=== PATIENT | male | born 1960 | race Caucasian/White ===

== ENCOUNTER 2022-04-24 12:42 | Day surgery (SDC) | payer OTHER, SELFPAY ==
[2022-04-11 11:10] VITALS: BMI 32.5
--- NOTE | 2022-04-23 13:09 | SUR.PREOP ---
PT CALLED REGARDING MAG CITRATE PORTION OF PREP FOR TOMORROWS COLONOSCOPY. INSTRUCTED PT REGARDING RECALL. NO REPLACEMENT NEEDED PER DR SHELDON OFFICE
--- NOTE | 2022-04-24 13:26 | P.PNAN_ITS ---
Anes - Initial Pre Proc Eval Procedure: Operation Date: 04/24/22 14:30 Proposed Procedures p Screening Colonoscopy - Berto Pabon MD Date/Time: 04/24/22 13:26 Surgeon: Berto Pabon MD Pre Op Diagnosis: Neoplasm Screening and History of Colon Polyps Patient Data Age: 62 Gender: M Height: 1.83 m Weight: 109 kg Allergies Allergy/AdvReac Type Severity Reaction Status Date / Time NKDA Allergy Unknown Other Uncoded 04/11/22 10:57 Home Medications Medication Instructions Recorded Confirmed Type sodium sul 1.479 gram-potas ch See Rx Instructions PO PER PKG DIR 01/08/22 Rx 0.188 gram-magnes sul 0.225 gram #24 tabs tablet (Sutab) [id number] 120 mcg-lutein 1 tablet PO DAILY 04/11/22 04/11/22 History 150 mcg-herb 50 mg chewable tablet (Alive Men's 50 Plus Multivitamin) Patient hx anesthesia problems: none Family hx anesthesia problems: none Results Review: All pre-operative results and documents have been reviewed as part of the pre-operative evaluation. [facility] Past Medical History Medical History Hyperlipidemia KLAUS (obstructive sleep apnea) Family History Family History Mother Patient's mother is in good health Sibling Patient's sister is in good health Social History Social History Smoking packs per day: 1 Smoking cigarettes per day: 20.0 Years smoked: 40 Smoking pack-years: 40.00 Smoking status: Current every day smoker Tobacco type: cigarettes Alcohol intake: current Drinks per week: 15 Alcohol use details: 2-3 BEERS PER DAY Substance use: never Substance use type: does not use Living arrangements: with family Spiritual care concerns: No Anes - Eval Final PreProcedure Day of Procedure 04/24/22 13:26 Patient weight: obese Heart: regular rate and rhythm Lungs: decreased breath sounds Airway: Mallampati scale class II Neurological: alert and oriented Last oral intake: >/= 8 hours ASA classification: III Emergent: no Anesthetic plan: proceed Anesthesia type and monitoring: general GIVS and standard monitoring Results Review: All pre-operative results and documents have been reviewed as part of the pre- operative evaluation. Informed Consent: The patient's anesthetic plan and its attendant risks and benefits were discussed with the patient/family/POA. Questions were solicited and answers provided to the satisfaction of the patient/family/POA.
[2022-04-24 13:41] VITALS: BP 153/88; PULSE 88; RESP 20; TEMP 37.2; O2SAT 95
[2022-04-24] MEDS: LACTATED RINGERS 1,000 ML 150 ML IV CONT (13:43)
--- NOTE | 2022-04-24 14:05 | PM.HPGS ---
History of Present Illness History of Present Illness Consent: Risks, benefits, and alternatives have been discussed and questions answered. Patient agrees to proceed with procedure. Chief complaint: Neoplasm Screening and History of Colon Polyps Narrative: Edgardo Niño is a 62 year old male Presents for screening colonoscopy. Patient has a distant history of colon polyps. Perhaps 10 years ago. Patient reports that his current weight appetite and bowel movements are normal. He denies abdominal pain. He has had no bleeding. Family history is significant for a daughter with Crohn's disease. Patient presents today for neoplasia screening. Past medical history is significant for detached retina with a buckle placed Review of Systems Review of Systems: review of systems noncontributory. [facility] Past Medical History Medical History Hyperlipidemia KLAUS (obstructive sleep apnea) Family History Family History Mother Patient's mother is in good health Sibling Patient's sister is in good health Social History Social History Smoking packs per day: 1 Smoking cigarettes per day: 20.0 Years smoked: 40 Smoking pack-years: 40.00 Smoking status: Current every day smoker Tobacco type: cigarettes Alcohol intake: current Drinks per week: 15 Alcohol use details: 2-3 BEERS PER DAY Substance use: never Substance use type: does not use Living arrangements: with family Spiritual care concerns: No Meds Home Medications and Allergies Home Medications Medication Instructions Recorded Confirmed Type sodium sul 1.479 gram-potas ch See Rx Instructions PO PER PKG DIR 01/08/22 04/24/22 Rx 0.188 gram-magnes sul 0.225 gram #24 tabs tablet (Sutab) [id number] 120 mcg-lutein 1 tablet PO DAILY 04/11/22 04/24/22 History 150 mcg-herb 50 mg chewable tablet (Alive Men's 50 Plus Multivitamin) Allergies Allergy/AdvReac Type Severity Reaction Status Date / Time NKDA Allergy Unknown Other Uncoded 04/24/22 13:38 Vital Signs Vital Signs - 24 hr 04/24/22 13:41 Temperature 99.0 F Pulse Rate 88 Respiratory Rate 20 Blood Pressure 153/88 H Pulse Oximetry 95 Oxygen Delivery Room Air Exam Narrative: Physical exam reveals patient to be alert. Vital signs stable. HEENT exam is unremarkable. Patient is anicteric. Lungs are clear to auscultation and percussion. Heart is without murmur or extra sounds. Abdomen bowel sounds are present soft nontender with no hepatosplenomegaly. Digital external rectal exam is normal. Assessment and Plan Assessment and plan (1) History of colon polyps: Code(s): Z86.010 - Personal history of colonic polyps Status: Acute Assessment and Plan: Patient has a history of colon polyps. Plan is for neoplasia screening , fololow up colonoscopy now. further recommendations will be given after endoscopy (2) Encounter for screening colonoscopy: Code(s): Z12.11 - Encounter for screening for malignant neoplasm of colon Status: Acute
[2022-04-24 14:31] VITALS: BP 121/72; PULSE 81; RESP 16
--- NOTE | 2022-04-24 14:36 | WPDANESPN ---
Anes - Prog Note Post-Op Date/Time: 04/24/22 14:36 Cardiovascular status: normal Respiratory status: normal Airway patency: baseline Mental status: baseline Post-Op hydration status: normal Vital Signs: Last Vital Signs Temp 37.2 C 04/24/22 13:41 Pulse 88 04/24/22 13:41 Resp 20 04/24/22 13:41 BP 153/88 H 04/24/22 13:41 Pulse Ox 95 04/24/22 13:41 O2 Del Method Room Air 04/24/22 13:41 Pain Score (VAS): 0 I/O: Intake & Output 04/23/22 04/24/22 04/24/22 23:59 07:59 15:59 Intake Total 500 Balance 500 Patient Feedback: Patient satisfied with anesthetic care.
[2022-04-24 14:41] VITALS: BP 130/90; PULSE 80; RESP 16; O2SAT 98
[2022-04-24 14:51] VITALS: BP 133/91; PULSE 78; RESP 16
--- NOTE | 2022-04-24 14:59 | SUR.PHASEII ---
1450; PT AWAKE AND ALERT. EATING AND DRINKING. DENIES PAIN.
== END 2022-04-24 15:02 | disposition home or self-care (01) ==
PROVIDERS: PCP Family Medicine; Visit Provider Internal Medicine Gastroenterology
PROC: 0DJD8ZZ Inspection of Lower Intestinal Tract, Via Natural or Artificial Opening Endoscopic (ICD-10-PCS; CPT 45378; principal; 2022-04-24 14:30)
DX: Z86.010 Personal history of colon polyps (principal)
CPT/HCPCS: 45385

== ENCOUNTER 2022-04-24 13:00 | Outpatient (NON) | payer OTHER, SELFPAY | END 2022-04-24 13:01 | disposition home or self-care (01) | LOC: ANHLAB 04-25 08:29 | PROVIDERS: PCP Family Medicine; Visit Provider Internal Medicine Gastroenterology | DX: Z86.010 Personal history of colon polyps (principal) | CPT/HCPCS: 88305 ==

== ENCOUNTER 2024-03-01 08:13 | Outpatient (CLI) | payer BC, SELFPAY ==
--- NOTE | ~2024-03-01 | CT_ITS ---
CT Scan of the Chest without Contrast: Clinical Indication: Lung cancer screening, nicotine dependence Technique: Contiguous sections were acquired throughout the chest without intravenous contrast. Dose reduction technique was used on this scan by utilizing automated exposure control and iterative recon struction technique. The dose-length product (DLP) was 252.67 mGy-cm. Findings: There is no evidence of any significant mediastinal, hilar or axillary lymphadenopathy. Coronary don ry calcifications are present. There is no evidence of pleural or pericardial effusion. The lungs are clear. No pulmonary nodules or infiltrates are noted. Images through the upper abdomen reveal no abnormalities. Impression: Lung RADS 1: Negative. 12 month follow-up screening CT advised. Reviewed, dictated and finalized at location . Impression: Lung RADS 1: Negative. 12 month follow-up screening CT advised.
== END 2024-03-01 08:14 ==
LOC: GOSHIMG 08:15
PROVIDERS: PCP Emergency Medicine; Visit Provider Emergency Medicine
DX: Z12.2 Encounter for screening for malignant neoplasm of respiratory organs (principal); Z87.891 Personal history of nicotine dependence
CPT/HCPCS: 71271

== ENCOUNTER 2024-03-01 08:25 | Outpatient (CLI) | payer BC, SELFPAY ==
[2024-03-05 16:38] LABS: Testosterone Total 370 ng/dL (250-1100)
== END 2024-03-01 08:26 | disposition home or self-care (01) ==
LOC: ANHGOSHLAB 08:26
PROVIDERS: PCP Emergency Medicine; Visit Provider Emergency Medicine
DX: N52.9 Male erectile dysfunction, unspecified (principal)
CPT/HCPCS: 36415; 84403

== ENCOUNTER 2024-03-07 08:13 | Outpatient (CLI) | payer BC, SELFPAY | END 2024-03-07 08:14 | disposition home or self-care (01) | PROVIDERS: PCP Emergency Medicine; Visit Provider Emergency Medicine | DX: H90.5 Unspecified sensorineural hearing loss (principal) | CPT/HCPCS: 92557; 92567 ==

== ENCOUNTER 2024-11-28 08:25 | Outpatient (CLI) | payer BC, SELFPAY | END 2024-11-28 08:26 | disposition home or self-care (01) | LOC: GOSHIMG 08:25 | PROVIDERS: PCP Nurse Practitioner; Visit Provider Nurse Practitioner | DX: M25.561 Pain in right knee (principal) | CPT/HCPCS: 73562 ==

== ENCOUNTER 2025-03-26 16:35 | Emergency (ER) | payer BC, SELFPAY ==
--- OUTSIDE RECORDS SUMMARY | 2014-06-30 06:52 | XMS_ITS | Continuity of Care Document ---
Author Organization [facility] Address [address] [place] [address] Phone Care Team Providers Care Head Of Strategy Name Role Phone Maxine PT, MS, Bob Unavailable Unavailable Procedures Procedure Date THERAPEUTIC EXERCISES NEUROMUSCULAR RE-ED MANUAL THERAPY HOT/COLD PACK ELECTRIC STIMULATION UNA THERAPEUTIC EXERCISES NEUROMUSCULAR RE-ED MANUAL THERAPY HOT/COLD PACK ELECTRIC STIMULATION UNATT THERAPEUTIC EXERCISES NEUROMUSCULAR RE-ED MANUAL THERAPY HOT/COLD PACK ELECTRIC STIMULATION UNATT THERAPEUTIC EXERCISES NEUROMUSCULAR RE-ED MANUAL THERAPY HOT/COLD PACK ELECTRIC STIMULATION UNA PT EVALUATION THERAPEUTIC EXERCISES HOT/COLD PACK ELECTRIC STIMULATION UNATT Advance Directives Directive Yes / No Effective Date File Name No Information Encounters Encounter Description Practice Location Reason(s) For Visit Diagnoses Date Provider Providers Copied on Encounter [facility], [address], [place], [place], [id number], [place] tel:[phone] Boon No Information 4 Maxine Rojas. [address] [place] [address], [address], [place], [place], [facility], [place]. tel: [phone] [address], [place], [place], [id number], tel:[phone] Boon No Information Dec-0 3-201 4 Berna Cm. [address] [place] [address], [address], [place], [place], [facility], [place]. tel: [phone] Referring Provider: Toi Fig[facility]eroa [address] [facility], [place], [address]. tel:[phone] [address], [place], [place], [id number], tel:[phone] Boon No Information Jun-0 1-201 4 Maxine Rojas. [address] [place] [address], [address], [place], [place], [facility], . tel: [phone] Referring Provider: Yamileth Bernstein[address], [place], [address]. tel:[phone] [address], [place], [place], [id number], tel:[phone] Boon No Information May-2 8 4 Maxine Rojas. [address] [place] [address], [address], [place], [place], [facility], . tel: [phone] Referring Provider: Michael [address], [place], [address]. tel:[phone] [address], [place], [place], [id number], tel:[phone] Boon No Information 2 6 4 Berna Cm. [address] [place] [address], [address], [place], [place], [facility], . tel: [phone] Referring Provider: Toi Figueroa [address], [place], [address]. tel:[phone] [facility], [address] [place], [place] [address], [place], [place], [id number], [place] tel:[phone] Odilon ChesterbagoSciatica Maxine Rojas. [address] [facility], [address], [place], [address], [place]. tel:[phone] Referring Provider: Toi Figueroa, [address] [place], [address]. tel:[phone] Family History Family Member Type Diagnosis Age At Onset No Information Payers Payer name Insurance type Covered green party ID Authoriza carlitarogelio(s) Dely CI [id number] Social History Type Description Quantity Date Captured Comments Sex Male Smoking Status No Information Chief Complaint And Reason For Visit No Information Reason For Referral Reason For Referral No Information History Of Present Illness Encounter Date Complaint History Of Prese nt Illness No Information Functional Status Date Functional Assessmen t No Information Instructions Date Instruction Additional Infor mation No Information Assessments Type Assessment Date No Information Patient Care Teams Name Effective Dates (start - stop) Status Members No Information
--- NOTE | ~2025-03-26 | XR_ITS ---
EXAMINATION: XR hand RT min 3V DATE: 03/26/2025 22:16 INDICATION: Laceration at the base of the right thumb. TECHNIQUE: Posteroanterior, oblique and lateral views of the right hand were obtained. COMPARISON: None. FINDINGS: Old healed fracture deformity at the proximal shaft of the right fifth metacarpal. Tiny ossicle near the tip of the ulnar styloid process which could represent either a chronic nonunited avulsion fracture fragment, degenerative loose body or small heterotopic ossicle related to chronic soft tissue injury. Alignment is otherwise normal. No acute fractures. 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 No soft tissue gas or radiopaque foreign bodies. IMPRESSION: 1. No acute osseous abnormality or radiopaque foreign bodies. Reviewed, dictated and finalized at location A.
--- OUTSIDE RECORDS SUMMARY | 2025-03-26 16:37 | XMS_ITS | Clinical Summary ---
Author Organization [facility] Address [address] [facility] [place] [address] Care Team Providers Care Head Bander And Liner Operator Name Role Phone Toi Figueroa MD Primary Care Provider Source Comments [facility],non-owned Affiliates and Associated Physician Practices is amultiple site organization consisting of ambulatory clinics and hospital sitesin [place], [place], [place] and [place]. This disclosure is being madepursuant to the Care Everywhere program and may not contain all information available regarding this patient. 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 Gender Identity Not on file Sexual Orientation Not on file Last Filed Vital Signs Vital Sign Reading Time Taken Comments Blood Pressure 138/78 09/19/2014 9:27 AM WIRE COINER Pulse 77 09/19/2014 9:27 AM WIRE COINER Temperature 36.7 C (98 F) 09/19/2014 7:00 AM WIRE COINER Respiratory Rate 15 09/19/2014 9:27 AM WIRE COINER Oxygen Saturation 100% 09/19/2014 9:27 AM WIRE COINER Inhaled Oxygen Concentration - - Weight 108 kg (238 lb) 09/19/2014 7:00 AM WIRE COINER Height 182.9 cm (6') 09/19/2014 7:00 AM WIRE COINER Body Mass Index 32.28 09/19/2014 7:00 AM WIRE COINER Plan of Treatment Health Maintenance Due Date Last Done Comments COLOGUARD (AGES 45-75) - COL ON CA SCREENING 1960 COLON MONITORING 1960 COLONOSCOPY - COLON CA SCREENING 1960 CT COLONOGRAPHY - COLON CA SCREENING 1960 Colorectal Cancer Screening 1960 FIT - COLON CA SCREENING 1960 FLEX SIG - COLON CA SCREENING 1960 LIPID TESTING 1960 HIV SCREENING 1975 HEPATITIS C SCREENING 03/30/1978 DTAP/TDAP/TD VACCINES (1 - Tdap) 1979 PNEUMOCOCCAL VACCINE 50+ (1 of 1 - PCV) 2010 ZOSTER VACCINE (1 of 2) 2010 COVID-19 VACCINE (1 - 2023-2 5 season) 2024 DEPRESSION SCREENING 07/27/2024 INFLUENZA VACCINE (#1) 2025 Respiratory Syncytial Virus (RSV) Vaccine Pt: or over 60 yrs (1 - 1-dose 75+ series) 2035 HEPATITIS B VACCINE Aged Out No longe r eligible based on patient's age to complete this topic HIB VACCINE Aged Out No longer eligi ble based on patient's age to complete this topic HPV VACCINE Aged Out No longer eligi ble based on patient's age to complete this topic MENINGOCOCCAL (Group B) VACC INE SHARED DECISION-MAKING Aged Out No longer eligibl e based on patient's age to complete this topic MENINGOCOCCAL GROUPS A/C/Y/W VACCINE Aged Out No longer eligible b ased on patient's age to complete this topic [place] [address] [address] Care Teams Head Bander And Liner Operator Relationship Specialty Start Date End Date Toi Figueroa MD [address] [place] [address] PCP - General 08/24/12
--- OUTSIDE RECORDS SUMMARY | 2025-03-26 16:37 | XMS_ITS | Clinical Summary ---
Author Organization 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 Gender Identity Not on file Sexual Orientation Not on file Plan of Treatment Health Maintenance Due Date Last Done Comments Hepatitis C Virus (HCV) Screening 1960 TdaP Immunization 1960 Cologuard 2005 Colonoscopy 2005 Colorectal Cancer Screening 2005 Immunochemical Fecal Occult Blood 2005 Pneumococcal Immunization (5 0+ years) (1 of 1 - PCV) 2010 Zoster Immunization (1 of 2) 2010 SARS-COV-2 Immunization (3 - season) 2024 10/31/2020, 10/03/2020 Influenza Immunization (#1) 2025 Respiratory Syncytial Virus (RSV) Immunization (Adult) (1 - 1-dose 75+ series) 2035 Hepatitis B Immunization Aged Out No longer eligible based on patient's age to complete this topic Human Papillomavirus (HPV) Immunization Aged Out No longer eligible b ased on patient's age to complete this topic Meningococcal Immunization (ACWY) Aged Out No longer eligible b ased on patient's age to complete this topic Rotavirus Immunization Aged Out No lo nger eligible based on patient's age to complete this topic
[2025-03-26 17:04] VITALS: BP 118/73; PULSE 94; RESP 18; TEMP 36.7; O2SAT 96
[2025-03-26 18:44] VITALS: BP 125/72; PULSE 87; RESP 18; TEMP 36.6; O2SAT 96
[2025-03-26 20:33] VITALS: BP 127/79; PULSE 84; RESP 19; O2SAT 98
--- NOTE | 2025-03-26 22:09 | ED.WOUNDLAC ---
HPI - Wound/Laceration General Chief Complaint: Wound/Laceration Stated Complaint: R thumb lac Time Seen by Provider: 03/26/25 20:57 Source: patient Mode of arrival: ambulatory Limitations: no limitations History of Present Illness HPI narrative: Patient is a 64 y/o male who presents to the ED with c/o laceration to his R hand. Patient reports he was using a internal grinder wheel to cut metal when it slipped and he sustained a laceration to the base of his R thumb. Patient denies any other injuries. No numbness. Tetanus unknown. Related Data Home Medications ?Medication ?Instructions ?Recorded ?Confirmed ?Last Taken ?Type [id number] 120 mcg-lutein 1 tablet PO DAILY 04/11/22 11/28/24 1 Day Ago History 150 mcg-herb 50 mg chewable tablet ~04/23/22 (Alive Men's 50 Plus Multivitamin) sildenafil 50 mg tablet 50 mg PO PRN 11/28/24 11/28/24 Unknown History Allergies Allergy/AdvReac Type Severity Reaction Status Date / Time NKDA Allergy Unknown Other Uncoded 03/26/25 17:07 Review of Systems Review of Systems: All systems reviewed & are unremarkable except as noted in HPI. All systems reviewed & are unremarkable except as noted in HPI and below PMFSH Past Medical History Medical History Detached retina Hyperlipidemia KLAUS (obstructive sleep apnea) Surgical History Surgical History History of detached retina repair H/O vasectomy Family History Family History Mother Alzheimer dementia Sibling Patient's sister is in good health Father Hypertension Malignant neoplasm of prostate Alzheimer dementia Other Malignant neoplasm of prostate Social History Social History Smoking packs per day: 1 Smoking cigarettes per day: 20.0 Years smoked: 40 Smoking pack-years: 40.00 Smoking status: Current every day smoker Tobacco type: cigarettes Alcohol intake: current Drinks per week: 15 Alcohol use details: 2-3 BEERS PER DAY Substance use: never Substance use type: does not use Do You Feel Safe in your Home?: Yes Lack of Transportation: No Lack of Food: Never True Current Housing: I Have Housing Concerned About Future Housing: No Difficulty Paying Gas/Electric Bills: No Difficulty Paying for Meds: No Currently Unemployed: No Education: Associate Degree Living arrangements: with family Occupation/Education: occupation 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 HEAD: Normocephalic, atraumatic. RESPIRATORY: Airway patent, respirations nonlabored. CARDIOVASCULAR: Regular rate and rhythm. Radial pulses strong and easily palpable MUSCULOSKELETAL: Moves all extremities. No gross deformities. Full ROM of R thumb flexion/abduction. SKIN: Warm, dry, normal color. Approx 2cm linear laceration to dorsal R hand near 1st mcp region extending into webspace between 1st/2nd digits, minimal active bleeding. Sensation intact. Small black foreign bodies noted. NEURO: A&O X3. Speech clear. PSYCHIATRIC: Appropriate mood and affect. Normal interaction. Course Vital Signs Vital signs: Vital Signs Temperature 98.0 F 03/26/25 17:04 Pulse Rate 94 03/26/25 17:04 Respiratory Rate 18 03/26/25 17:04 Blood Pressure 118/73 03/26/25 17:04 Pulse Oximetry 96 03/26/25 17:04 Oxygen Delivery Room Air 03/26/25 17:04 Temperature 97.9 F 03/26/25 18:44 Pulse Rate 80 03/26/25 23:21 Respiratory Rate 20 03/26/25 23:21 Blood Pressure 132/81 03/26/25 23:21 Pulse Oximetry 97 03/26/25 23:21 Oxygen Delivery Room Air 03/26/25 17:04 Procedures Laceration Laceration 1: Date: 03/26/25 Time: 22:35 Site: hand Side (If applicable): right Size (cm): 2 Description: linear Depth: simple, single layer Local Anesthetic: lidocaine 1% Amount of anesthesia used (mL): 3 Pre-repair: wound explored, irrigated and irrigated extensively ====== Skin Level ====== Skin layer closed with: nylon Size (cm): 4-0 Number of sutures: 5 Technique: simple, interrupted ====== Subcutaneous Layer ====== ====== Muscle Layer ====== ====== Tendon Layer ====== MDM - Wound/Laceration MDM Narrative Medical decision making narrative: X-ray of right hand without obvious evidence of foreign body or fracture. Patient neurovascularly intact. No evidence of ligamentous injury. Full range of motion of right thumb. Laceration was thoroughly irrigated. Several small pieces of debris removed. Laceration was repaired without complications. Patient does not tetanus status updated in the ED. Given contaminated nature of wound, will place on short course of antibiotics for infection prophylaxis. Patient given wound care instructions and strict return precautions. He is in agreement with plan. Discharged in stable condition. Medical Records Attestation: I reviewed the patient's medical records. Imaging Data Attestation: I personally reviewed and interpreted this imaging study as follows: My impression: XR R hand: No acute osseous abnormality or radiopaque foreign body. Discharge Plan Discharge Clinical Impression: Laceration of right hand Qualifiers: Encounter type: initial encounter Foreign body presence: with foreign body Qualified Code(s): S61.421A - Laceration with foreign body of right hand, initial encounter Patient Disposition: Home Condition: Stable Instructions: Antibiotic Form, Care For Your Stitches (ED), Laceration (ED) Additional Instructions: Take antibiotics as prescribed to prevent infection. Return to the ED or visit an urgent care or your PCP for follow-up and wound check/suture removal in 7-10 days. Keep the wound as dry as possible for 24 hours. You may remove the bandage after 24 hours and wash with simple soap and water, but do not scrub. Return to the ED if you experience uncontrolled bleeding, fever, chills, pus-like drainage, or redness/swelling/warmth surrounding the wound, as these could be signs of an infection. Patient Language: Estonian Prescriptions: New cephalexin 500 mg capsule 500 mg PO Q6H 7 Days Qty: 28 0RF No Action sildenafil 50 mg tablet 50 mg PO PRN losartan 50 mg tablet 50 mg PO DAILY Qty: 90 1RF rosuvastatin 5 mg tablet 5 mg PO DAILY Qty: 90 1RF Alive Men's 50 Plus Multivit 120 mcg-150 mcg -50 mg Tablet,Chewable 1 tablet PO DAILY Follow-up/Referrals: Carmen Oliveros DO [Primary Care Provider, [facility]] Time of Disposition: 22:50
[2025-03-26] MEDS: CEPHALEXIN 500 MG CAPSULE PO (23:08)
[2025-03-26] MEDS: TETANUS,DIPHTHERIA,AC PERTUSSIS ADULT (0.5 ML) BOOSTRIX IM (23:08)
[2025-03-26 23:10] VITALS: BP 132/81; PULSE 80; RESP 20; O2SAT 97
[2025-03-26 23:21] VITALS: BP 132/81; PULSE 80; RESP 20; O2SAT 97
== END 2025-03-26 23:22 | disposition home or self-care (01) ==
PROVIDERS: Emergency Provider Physician Assistant; PCP Family Medicine
DX: S61.411A Laceration without foreign body of right hand, initial encounter (principal); Z23 Encounter for immunization; E78.5 Hyperlipidemia, unspecified; G47.33 Obstructive sleep apnea (adult) (pediatric); F17.210 Nicotine dependence, cigarettes, uncomplicated; W31.1XXA Contact with metalworking machines, initial encounter
CPT/HCPCS: 12001; 73130; 90471; 90715; 99283; A9270